=== PATIENT | female | born 1970 ===

== ENCOUNTER 2018-05-26 11:18 | Outpatient (CLI) | payer OTHER ==
[~2018-05-26] VITALS: Ht 170.2 cm; Wt 80.7 kg
== END 2018-05-26 11:40 | disposition home or self-care (01) ==
LOC: OFIC 805 11:18
DX: E04.1 Nontoxic single thyroid nodule (principal); H60.8X2 Other otitis externa, left ear; K21.0 Gastro-esophageal reflux disease with esophagitis; H61.22 Impacted cerumen, left ear; R49.0 Dysphonia

== ENCOUNTER 2018-06-16 10:23 | Outpatient (CLI) | payer OTHER ==
[~2018-06-16] VITALS: Ht 152.4 cm; Wt 80.7 kg
== END 2018-06-16 10:45 | disposition home or self-care (01) ==
LOC: OFIC 805 10:23
DX: R53.83 Other fatigue (principal); R49.0 Dysphonia; E04.1 Nontoxic single thyroid nodule; R22.1 Localized swelling, mass and lump, neck

== ENCOUNTER 2018-07-28 11:00 | Outpatient (CLI) | payer OTHER ==
[~2018-07-28] VITALS: Ht 152.4 cm; Wt 80.7 kg
== END 2018-07-28 11:15 | disposition home or self-care (01) ==
LOC: OFIC 805 11:00
DX: H73.90 Unspecified disorder of tympanic membrane, unspecified ear (principal); H93.90 Unspecified disorder of ear, unspecified ear; R42 Dizziness and giddiness

== ENCOUNTER 2018-09-12 12:02 | Outpatient (CLI) | payer OTHER ==
[~2018-09-12] VITALS: Ht 152.4 cm; Wt 80.7 kg
== END 2018-09-12 12:20 | disposition home or self-care (01) ==
LOC: OFIC 805 12:02
DX: H81.90 Unspecified disorder of vestibular function, unspecified ear (principal)

== ENCOUNTER 2019-04-27 10:37 | Outpatient (CLI) | payer OTHER ==
[~2019-04-27] VITALS: Ht 152.4 cm; Wt 83.0 kg
== END 2019-04-27 13:54 | disposition home or self-care (01) ==
LOC: OFIC 805 10:37
DX: H91.8X2 Other specified hearing loss, left ear (principal); E04.2 Nontoxic multinodular goiter; H81.8X3 Other disorders of vestibular function, bilateral

== ENCOUNTER → 2019-07-31 | Outpatient (CLI) | payer OTHER | END | disposition home or self-care (01) | LOC: OFIC 805 14:30 | DX: E04.2 Nontoxic multinodular goiter (principal); R42 Dizziness and giddiness ==